=== PATIENT | male | born 1945 | race Caucasian/White ===

== ENCOUNTER 2020-08-16 13:25 | Outpatient (CLI) | payer MEDICARE, OTHER, SELFPAY ==
--- NOTE | 2020-08-16 13:55 | CT_ITS ---
WS: [id number] CTA THORACIC AORTA WITH AND WITHOUT CONTRAST. HISTORY: FAMILY HISTORY OF THORACIC ANEURYSM TECHNIQUE: CT imaging of the thorax is performed with and without contrast. After noncontrast imaging is performed, CT angiogram is performed during injection of Omnipaque 350; 95 mL IV.. Sagittal and c oronal reconstructions, sagittal and coronal MIP imaging is submitted. All CT scans at [facility] use at least one of these dose optimization techniques: automated exposure control; mA and/o r kV adjustment per patient size (includes targeted exams where dose is matched to clinical indicatio n); or iterative reconstruction. DLP: 1313.1 mGycm COMPARISON: None available. Normal size thoracic aorta. There is no aneurysm or dissection. Mild scattered plaque and intimal thi ckening. Maximum diameter ascending aorta is 3.8 cm. Normal ascending aorta. Normal size pulmonary ar dahlia. Normal great vessels. No adenopathy in the mediastinum or hilar regions. Heart size is normal. No pericardial or pleural effusions. No pneumonia or pulmonary mass. Incompletely visualized cyst in the RIGHT upper abdomen is probably associated with the kidney. This cyst measures 7.2 x 7.1 cm. No adrenal mass. Osteopenia. Increase in thoracic kyphosis and mild thoracic spondylitic disease. CT/CT angio chest [id number] IMPRESSION: 1. No thoracic aortic aneurysm or dissection. 2. Mild atherosclerosis of the thoracic aorta. 3. No adenopathy or pneumonia. 4. Incompletely visualized cystic mass in the RIGHT upper abdomen. The origin is not evident but this is probably related to the kidney. Renal ultrasound can be performed for confirmation of etiology.
[2020-08-16] MEDS: iohexol 350 mg/mL 100 mL Btl IV (14:29)
== END 2020-08-16 13:26 | disposition home or self-care (01) ==
PROVIDERS: Visit Provider Emergency Medicine Emergency Medical Services
DX: Z13.89 Encounter for screening for other disorder (principal); I70.0 Atherosclerosis of aorta; Z84.89 Family history of other specified conditions; R19.00 Intra-abdominal and pelvic swelling, mass and lump, unspecified site
CPT/HCPCS: 71275; Q9967

== ENCOUNTER → 2023-01-19 09:42 | Outpatient (BNVA) | payer MEDICARE, OTHER, SELFPAY | PROVIDERS: PCP Emergency Medicine Emergency Medical Services; Visit Provider Podiatrist Foot & Ankle Surgery | DX: B35.1 Tinea unguium (principal); R60.9 Edema, unspecified; G62.9 Polyneuropathy, unspecified; I73.9 Peripheral vascular disease, unspecified; L84 Corns and callosities; M20.41 Other hammer toe(s) (acquired), right foot; M20.42 Other hammer toe(s) (acquired), left foot; E11.42 Type 2 diabetes mellitus with diabetic polyneuropathy | CPT/HCPCS: 11056; 11721; 99203 ==

== ENCOUNTER → 2023-03-26 09:55 | Outpatient (BNVA) | payer MEDICARE, OTHER, SELFPAY | PROVIDERS: PCP Emergency Medicine Emergency Medical Services; Visit Provider Podiatrist Foot & Ankle Surgery | DX: B35.1 Tinea unguium (principal); R60.9 Edema, unspecified; G62.9 Polyneuropathy, unspecified; I73.9 Peripheral vascular disease, unspecified; L84 Corns and callosities; M20.41 Other hammer toe(s) (acquired), right foot; M20.42 Other hammer toe(s) (acquired), left foot; E11.42 Type 2 diabetes mellitus with diabetic polyneuropathy | CPT/HCPCS: 11056; 11721 ==

== ENCOUNTER → 2024-10-01 08:50 | Outpatient (BNVA) | payer OTHER, SELFPAY | PROVIDERS: PCP Emergency Medicine Emergency Medical Services; Visit Provider Nurse Practitioner Family | DX: L98.1 Factitial dermatitis (principal); S30.861A Insect bite (nonvenomous) of abdominal wall, initial encounter; X58.XXXA Exposure to other specified factors, initial encounter; L82.1 Other seborrheic keratosis; L57.8 Other skin changes due to chronic exposure to nonionizing radiation; X32.XXXA Exposure to sunlight, initial encounter; D18.01 Hemangioma of skin and subcutaneous tissue; L91.8 Other hypertrophic disorders of the skin; L81.4 Other melanin hyperpigmentation; L82.0 Inflamed seborrheic keratosis; R20.9 Unspecified disturbances of skin sensation; R20.8 Other disturbances of skin sensation | CPT/HCPCS: 11102; 17000; 17110; 99204 ==

== ENCOUNTER → 2024-11-17 12:02 | Outpatient (BNVA) | payer OTHER, SELFPAY | PROVIDERS: PCP Emergency Medicine Emergency Medical Services; Visit Provider Nurse Practitioner Family | DX: L98.1 Factitial dermatitis (principal); L82.1 Other seborrheic keratosis; L57.8 Other skin changes due to chronic exposure to nonionizing radiation; X32.XXXA Exposure to sunlight, initial encounter; D18.01 Hemangioma of skin and subcutaneous tissue; L91.8 Other hypertrophic disorders of the skin; L81.4 Other melanin hyperpigmentation; L82.0 Inflamed seborrheic keratosis; L53.8 Other specified erythematous conditions; R20.8 Other disturbances of skin sensation; L57.0 Actinic keratosis | CPT/HCPCS: 17000; 17110; 99214 ==